=== PATIENT | female | born 1995 | race Caucasian/White ===

== ENCOUNTER 2021-12-30 10:48 | Inpatient (IN) | payer OTHER ==
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
--- NOTE | 2021-12-30 14:35 | XR ---
EXAMINATION TYPE: XR chest 2V DATE OF EXAM: 12/30/2021 COMPARISON: NONE HISTORY: Difficulty in breathing today. TECHNIQUE: Frontal and lateral views of the chest are obtained. FINDINGS: There is no suspicious focal air space opacity, pleural effusion, or pneumothorax seen. T he cardiac silhouette size is within normal limits. There is right C7 cervical rib incidentally noted . IMPRESSION: No acute cardiopulmonary process.
[2021-12-30 15:57] LABS: Appearance,Urine Clear (Clear); Bilirubin,Urine Negative (Negative); Blood,Urine Large (Negative); Color,Urine Yellow; Glucose,Urine (UA) Negative (Negative); Ketones,Urine Negative (Negative); Leukocyte Esterase,Urine Trace (Negative); Mucus,Urine Occasional /hpf; Nitrite,Urine Negative (Negative); Protein,Urine Trace (Negative); RBC,Urine 7 /hpf (0-5); Specific Gravity,Urine 1.023 (1.001-1.035); Squamous Epithelial Cell,Urine 1 /hpf (0-4); Urobilinogen,Urine <2.0 mg/dL (<2.0); WBC,Urine 4 /hpf (0-5)
[2021-12-30 16:04] LABS: Amphetamine Screen,Urine Not Detected (NotDetected); Barbiturate Screen,Urine Not Detected (NotDetected); Benzodiazepines Screen,Urine Not Detected (NotDetected); Cocaine Screen,Urine Not Detected (NotDetected); Methadone Screen, Urine Not Detected (NotDetected); Opiate Screen,Urine Not Detected (NotDetected); Oxycodone Screen, Urine Not Detected (NotDetected); Phencyclidine Screen,Urine Not Detected (NotDetected); Tricyclic Antidepressant,Urine Not Detected (NotDetected); Urn Cannabinoid Scrn Detected (NotDetected)
[2021-12-30] MEDS ORDERED: IBUPROFEN 600 MG TAB PO STA (16:55)
[2021-12-30] MEDS ORDERED: MAGNESIUM HYDROXIDE 2,400 MG/10 ML CUP PO PRN (22:24)
[2021-12-30] MEDS ORDERED: LORazepam 1 MG TAB PO PRN (22:24)
[2021-12-30] MEDS ORDERED: ACETAMINOPHEN TAB 325 MG TAB PO PRN (22:24)
[2021-12-30] MEDS ORDERED: MAG HYDROX/AL HYDROX/SIMETH 30 ML CUP PO PRN (22:24)
[2021-12-30] MEDS ORDERED: LORazepam 2 MG/ML INJ IM PRN (22:28)
[2021-12-31] MEDS ORDERED: traZODone HCL 50 MG TAB PO PRN (00:06)
--- NOTE | 2021-12-31 01:03 | P.CONS ---
History of Present Illness - Reason for Consult Consult date: 12/30/21 - History of Present Illness Patient is a 26-year-old female with a PMH of PTSD who presented to the emergency room after a fall at home. The patient reported that she has been having a difficult time coping with her history of PTSD. She was admitted with mental health unit where she was seen and evaluated with the mental health unit [facility]. The patient denied additional past medical history and reports that she does not take any medications. She denied any active physical complaints at the time of interview. Denied experiencing chest discomfort, shortness of cough, chills, cough, nausea, vomiting, abdominal pain, diarrhea. The patient reports marijuana use but denied any additional substance use or alcohol use. Review of systems: Pertinent positives and negatives as discussed in HPI, a complete review of systems was performed and all other systems are negative. Physical examination: General: non toxic, no distress, appears at stated age, normal weight Derm: no unusual rashes/lesions no unusual ecchymoses, warm, dry Head: atraumatic, normocephalic, symmetric Eyes: EOMI, no lid lag, anicteric sclera, pupils equal round reactive to light ENT: Nose and ears atraumatic, no thrush, no pharyngeal erythema Neck: No thyromegaly, no cervical lymphadenopathy, trachea midline, supple Mouth: no lip lesion, mucus membranes moist Cardiovascular: S1S2 reg, no murmur, positive posterior tibial pulse bilateral, no edema, capillary refill less than 2 seconds Lungs: CTA bilateral, no rhonchi, no rales , no accessory muscle use Abdominal: soft, nontender to palpation, no guarding, no appreciable organo megaly, normal bowel sounds Ext: no gross muscle atrophy, muscle strength 5 out of 5 in all 4 extremities grossly, no contractures, Neuro: CN II-XI grossly intact, light touch intact all 4 extremities, finger to nose within normal limits, Psych: Alert, oriented, depressive and guarded affect Assessment/plan Marijuana abuse -Advised on the importance of cessation PTSD -As per psychiatry Thank you for allowing us to participate in the care of this patient. We will follow peripherally. Do not hesitate to contact us with questions. Someone can be reached from the [facility] hospitalist group at all hours of the day at [phone]. Past Medical History Past Medical History: No Reported History Additional Past Medical History / Comment(s): PTSD History of Any Multi-Drug Resistant Organisms: None Reported Additional Past Surgical History / Comment(s): tubes in ears, D&C Past Psychological History: PTSD Smoking Status: Never smoker Past Alcohol Use History: None Reported Past Drug Use History: None Reported Medications and Allergies Home Medications Medication Instructions Recorded Confirmed Type No Known Home Medications 12/30/21 12/30/21 History Allergies Allergy/AdvReac Type Severity Reaction Status Date / Time No Known Allergies Allergy Verified 12/30/21 15:31 Physical Exam Vitals: Vital Signs Temp Pulse Resp BP Pulse Ox 12/30/21 18:04 98 F 90 16 107/75 100 12/30/21 11:23 98.2 F 71 18 102/72 99 Intake and Output 12/30/21 12/30/21 12/31/21 14:59 22:59 06:59 Other: Weight 47.627 kg Results Labs: Abnormal Lab Results - Last 24 Hours (Table) 12/30/21 Range/Units 15:28 Urine Protein Trace H (Negative) Urine Blood Large H (Negative) Ur Leukocyte Esterase Trace H (Negative) Urine RBC 7 H (0-5) /hpf Urine Mucus Occasional H (None) /hpf U Marijuana (THC) Screen Detected H (NotDetected)
[2021-12-31] MEDS ORDERED: FLUoxetine HCL 10 MG CAP PO STA (09:58)
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
[2021-12-31] MEDS ORDERED: traZODone HCL 100 MG TAB PO SCH (21:00)
[2022-01-01] MEDS ORDERED: FLUoxetine HCL 20 MG CAP PO SCH (09:00)
--- NOTE | 2022-01-01 11:46 | P.PN ---
Progress Note - Text Progress Note Date: 01/01/22 Interval History: Patient was seen wandering the hallways and was directable and agreeable to speak with film writer in the office. The patient reports that she was not feeling well this morning. She attributes this to trazodone which she reports she had a bad reaction to in the past. She states that she felt very nauseous and lightheaded. She reports that the trazodone also did not help her sleep and that she had some difficulty with sleep last night. She is currently denying any suicidal or homicidal ideation, intention, and/or plan. She is not reporting any auditory or visual hallucinations. She continues to report that she has a low appetite however states that it is mildly improving. She did have visitation from her fianc last night however reported that she felt that it could have been more of an effort on his part as he did not arrive on time. She is not endorsing any flashbacks or nightmares at this time. Mental Status Exam: General Appearance: Patient appears to be stated age is alert, directable, and cooperative. Behavior: Patient is calmly seated without any agitated behavior. Speech: Patient's speech is fluent and nonpressured. Mood/Affect: Mood is improving mildly, affect is congruent and constricted. Suicidality/Homicidality: Patient denies having any suicidal or homicidal ideation intent or plan. Perceptions: Patient denies any visual hallucinations and denies any auditory hallucinations Though content/process: There is no evidence of any delusional thought content and thought process is linear and goal-directed. Memory and concentration: AOX3, grossly intact for the purposes of this session Judgment and insight: Improving mildly Vital Signs Temp 98.1 F 01/01/22 09:39 Pulse 60 01/01/22 09:39 Resp 20 01/01/22 09:39 BP 105/50 01/01/22 09:39 Pulse Ox 97 01/01/22 06:38 Assessment Major depressive disorder, recurrent, severe Posttraumatic stress disorder Plan: -Patient continues to meet criteria for inpatient psychiatric admission for symptom stabilization and safety. Patient has signed adult voluntary form and medication consent and was placed in patient's chart. -Medications: Increase Prozac to 40 mg by mouth daily. Medication will be administered at lunchtime with food as per patient preference. -When necessary Ativan for agitation/aggression. -SW on board for discharge planning. Encouraged the patient to participate in milieu.
[2022-01-01] MEDS: FLUoxetine HCL 20 MG CAP PO SCH (14:12)
[2022-01-01 16:26] VITALS: RESP 16
[2022-01-02 06:54] VITALS: BP 111/54; PULSE 77; TEMP 97.7
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
[2022-01-02] MEDS: FLUoxetine HCL 20 MG CAP PO SCH (12:22)
== END 2022-01-02 12:26 | disposition home or self-care (01) | DRG 885 ==
LOC: EC 10:48 → 3MHU 21:27
PROVIDERS: ADMIT Psychiatry & Neurology Psychiatry; ATTEND Psychiatry & Neurology Psychiatry
DX: F33.2 Major depressive disorder, recurrent severe without psychotic features (principal); F43.10 Post-traumatic stress disorder, unspecified; F90.9 Attention-deficit hyperactivity disorder, unspecified type; M54.6 Pain in thoracic spine; G47.00 Insomnia, unspecified; Z91.410 Personal history of adult physical and sexual abuse; Z62.810 Personal history of physical and sexual abuse in childhood; Z91.51 Personal history of suicidal behavior; Z71.51 Drug abuse counseling and surveillance of drug abuser; W10.9XXA Fall (on) (from) unspecified stairs and steps, initial encounter; Y92.009 Unspecified place in unspecified non-institutional (private) residence as the place of occurrence of the external cause; Z81.8 Family history of other mental and behavioral disorders; F12.90 Cannabis use, unspecified, uncomplicated
CPT/HCPCS: 71046; 80306; 81001; 81025; 82075; 87635; 99285